=== PATIENT | female | born 1990 | race African-American/Black ===

== ENCOUNTER 2020-06-16 19:01 | Inpatient (IN) | payer OTHER ==
[2020-06-16] MEDS ORDERED: MISOPROSTOL 0.2 MG TABLET ONE (19:13)
[2020-06-16] MEDS ORDERED: LIDOCAINE 1% INJ-PF (10 MG/ML) 30 ML SDV ONE (19:13)
[2020-06-16] MEDS ORDERED: OXYTOCIN 10 UNIT/ML VIAL ONE (19:13)
[2020-06-16] MEDS ORDERED: OXYTOCIN/0.9 % SODIUM CHLORIDE 30 UNIT/500 ML RTUINJ ONE (19:13)
[2020-06-16] MEDS ORDERED: RINGERS SOLUTION,LACTATED 1,000 ML IV PRN (19:14)
--- NOTE | 2020-06-16 19:28 | Admission Physical ---
Datetime Report Generated by CPN: 06/16/2020 19:28 CURRENT ADMISSION Chief Complaint: Uterine Contractions Chief Complaint Other: Contractions since yesterday getting closer and more painful Admit Impression : Term, Intrauterine ; Active Labor Admit Plan: Admit to Unit; Initiate Labor Protocol OBSTETRICAL HISTORY EDC: 06/26/2020 00:00 : 3 Para: 1 Term: 1 : 0 IAB: 0 Ectopic: 0 Livin Cesareans: 0 VBACs: 0 Multiple Births: 0 PHYSICAL EXAM General: Normal HEENT: Normal Neurologic: Normal Thyroid: Normal Heart: Normal Lungs: Normal Breast: Normal Back: Normal Abdomen: Normal Genitourinary Exam: Normal Extremities: Normal DTRs: Normal Pelvic Type: Adequate Vital Signs: Reviewed; Within Normal Limits VAGINAL EXAM Dilatation: 9 Effacement: 100 Station: 0 Contraction Comments: every 3 minutes regularly MEMBRANES Membranes: Intact FETUS A EGA: 38.4 Monitoring: External US FHR- Baseline: 150 Variability: Moderate 6-25bpm Accelerations: 15X15 Decelerations: None FHR Category: Category I Presentation: Vertex Admit Comment: at 38.4 wks EGA in active labor -Admit to LDR -NPO and IVFs: LR one liter bolus then 125 cc/hr -GBS negative -Labs pending -Hx one prior -ANtiicpate -desires natural delivery INFORMED CONSENT Informed Consent Obtained: Vaginal Delivery; Risks, Benefits and Alternatives Discussed Signature: with User ID: [email or web address] : with User ID: [email or web address]
[2020-06-16 19:43] LABS: ABSOLUTE LYMPHOCYTES (AUTO) 1.4 10^3/uL (0.5-4.7); ABSOLUTE MONOCYTES (AUTO) 0.8 10^3/uL (0.1-1.4); ABSOLUTE NEUT (AUTO) 4.5 10^3/uL (1.7-8.2); BASOPHILS % (AUTO) 0.6 % (0-2); EOSINOPHILS % (AUTO) 0.5 % (0-6); HEMATOCRIT 39.3 % (36.0-47.0); HEMOGLOBIN 12.7 g/dL (12.0-15.5); LYMPHOCYTES % (AUTO) 20.3 % (13-45); MEAN CORPUSCULAR HEMOGLOBIN 23.6 pg (27.0-33.4); MEAN CORPUSCULAR HGB CONC 32.3 g/dL (32.0-36.0); MEAN CORPUSCULAR VOLUME 73 fl (80-97); MONOCYTES % (AUTO) 12.1 % (3-13); PLATELET COUNT 185 10^3/uL (150-450); RED BLOOD COUNT 5.39 10^6/uL (3.72-5.28); RED CELL DISTRIBUTION WIDTH 15.6 % (11.5-14.0); SEGMENTED NEUTROPHILS % (AUTO) 66.5 % (42-78); TOTAL CELLS COUNTED % (AUTO) 100 %; WHITE BLOOD COUNT 6.7 10^3/uL (4.0-10.5)
[2020-06-16] MEDS ORDERED: IBUPROFEN 800 MG TABLET ONE (20:00)
[2020-06-16] MEDS ORDERED: PROMETHAZINE HCL 25 MG SUPP.RECT PR PRN (20:04)
[2020-06-16] MEDS ORDERED: MAGNESIUM HYDROXIDE SUSP 30 ML UDCUP PO PRN (20:04)
[2020-06-16] MEDS ORDERED: PSEUDOEPHEDRINE HCL 30 MG TABLET PO PRN (20:04)
[2020-06-16] MEDS ORDERED: ZOLPIDEM TARTRATE 5 MG TABLET PO PRN (20:04)
[2020-06-16] MEDS ORDERED: PROMETHAZINE HCL INJ 25 MG/1 ML VIAL IV PRN (20:04)
[2020-06-16] MEDS ORDERED: DIBUCAINE 1% OINTMENT 28 GM TP PRN (20:04)
[2020-06-16] MEDS ORDERED: PROMETHAZINE HCL 25 MG TABLET PO PRN (20:04)
[2020-06-16] MEDS ORDERED: ACETAMINOPHEN WITH CODEINE #3 TABLET PO PRN ×2 (20:04)
[2020-06-16] MEDS ORDERED: ACETAMINOPHEN 650 MG SUPP.RECT PR PRN (20:04)
[2020-06-16] MEDS ORDERED: MEASLES,MUMPS&RUBELLA VACC/PF 0.5 ML VIAL SUBCUT PRN (20:04)
[2020-06-16] MEDS ORDERED: DIPH/PERTUSS(ACELL)/TETANUS VAC/PF 0.5 ML SYR (>=10YO) IM PRN (20:04)
[2020-06-16] MEDS ORDERED: OXYTOCIN/0.9 % SODIUM CHLORIDE 30 UNIT/500 ML RTUINJ IV PRN (20:04)
[2020-06-16] MEDS ORDERED: GLYCERIN/WITCH HAZEL LEAF 1 EACH MED..WIPE TP PRN (20:04)
[2020-06-16] MEDS ORDERED: NA PHOS,M-B/NA PHOS,DI-BA (ADULT) 133 ML ENEMA PR PRN (20:04)
[2020-06-16] MEDS ORDERED: DIPHENHYDRAMINE HCL 25 MG CAPSULE PO PRN (20:04)
[2020-06-16] MEDS ORDERED: BENZOCAINE/MENTHOL AEROSOL SPRAY 56 ML TOP PRN (20:04)
--- NOTE | 2020-06-16 20:30 | Delivery Summary ---
Del Sum A-C Datetime Report Generated by CPN: 06/16/2020 20:29 DELIVERY PERSONNEL DELIVERY PERSONNEL: [id number] Delivery Doctor:: Mee Myers MD Labor and Delivery Nurse:: Ashia Fosetr RN Nursery Nurse:: Amy Lugo RN Ladle Repairer/REGENERATION OPERATOR: Elida ST Guerrero Ladle Repairer/REGENERATION OPERATOR: Annabelletabitha Mike, BARN MANAGER MATERNAL INFORMATION Delivery Anesthesia: None Medications After Delivery: Pitocin 30 Units in 500ml NS/D5W Delivery QBL: 100 Maternal Complications: None Provider Comments: Called to patients room as she had pressure and urge to push. Bulging baf in vaginal vault ruptured and large amount of clear fluid noted. Pt pushed through a few contractions and delivered viable male infant. Vigorous at delivery and cord clamping delayed for 30 seconds. Placenta spontaneously delivered intact. FUndus firm. Both Mother and stable. LABOR SUMMARY EDC: 06/26/2020 00:00 No. Babies in Womb: 1 Attempted: No Labor Anesthesia: None LABOR INFORMATION Reason for Induction: Not Applicable Onset of Labor: 06/16/2020 02:00 Complete Dilatation: 06/16/2020 19:34 Oxytocin: N/A Group B Beta Strep: negative Antibiotics # of Doses: n/a Name of Antibiotic Given: n/a Steroids Given: None Reason Steroids Not Administered: Not Applicable MEMBRANES Membranes Rupture Method: Artificial Rupture of Membranes: 06/16/2020 19:31 Length of Rupture (hr): 0.17 Amniotic Fluid Color: Clear Amniotic Fluid Amount: Moderate Amniotic Fluid Odor: Normal STAGES OF LABOR Stage 1 hr: 17 Stage 1 min: 34 Stage 2 hr: 0 Stage 2 min: 7 Stage 3 hr: 0 Stage 3 min: 2 Total Time in Labor hr: 17 Total Time in Labor min: 43 VAGINAL DELIVERY Episiotomy: None Laceration #1: Perineal Laceration Extension #1: Third Degree, IIIa (Less than 50 percent ext anal sphincter thickness torn) Laceration Repair: Yes Laceration Repair Note: Repaired with 3-0 chromic in a layered fashion beginning with superfical aspect of the rectal muscle which was repaired iwht interrupted stitch x2. Perineal body repaired and then mucosa. Good results. Lidocaine given prior to the repair Sponge Count Correct: Yes Sharps Count Correct: Yes BABY A INFORMATION Delivery Date/Time: 06/16/2020 19:41 Method of Delivery: Vaginal Born in Route : No : N/A Forceps: N/A Vacuum Extraction: N/A Shoulder Dystocia : No PRESENTATION/POSITION BABY A Presentation: Cephalic Cephalic Presentation: Vertex Vertex Position: Left Occipital Anterior Breech Presentation: N/A PLACENTA INFORMATION BABY A Placenta Delivery Time : 06/16/2020 19:43 Placenta Method of Delivery: Spontaneous Placenta Status: Delivered SCORES BABY A Heart Rate 1 min: >100 bpm Resp Effort 1 min: Good Cry Reflex Irritability 1 min: Cough or Sneeze or Pulls Away Muscle Tone 1 min: Active Motion Color 1 min: Body St[place], Extremities Blue Resuscitation Effort 1 min: Tactile Stimulation SCORE 1 MIN: 9 Heart Rate 5 min: >100 bpm Resp Effort 5 min: Good Cry Reflex Irritability 5 min: Cough or Sneeze or Pulls Away Muscle Tone 5 min: Active Motion Color 5 min: Body St[place], Extremities Blue Resuscitation Effort 5 min: Tactile Stimulation SCORE 5 MIN: 9 INFANT INFORMATION BABY A Gestational Age at Delivery: 38.4 Gestational Status: Early Term- 37- 38.6 Weeks Outcome : Liveborn Condition : Stable Sex: Male IDENTIFICATION BABY A Infant Verification Date/Time: 06/16/2020 20:23 ID Band Number: [id number] Mother's Name Verified: Yes RN Verifying Infant: Sonny Foster RN/ Rekha Wallace RN WEIGHT/LENGTH BABY A Infant Birthweight (gm): 3090 Infant Weight (lb): 6 Infant Weight (oz): 13 Length (in): 20.00 Infant Length (cm): 50.80 CORD INFORMATION BABY A No. Cord Vessels: 3 Nuchal Cord : N/A Cord Blood Taken: Yes-For Storage (Mom's Blood type +) Suction: None ASSESSMENT BABY A Complications: None Physical Findings at Delivery: Within Normal Limits Infant Respirations: Appears Normal Skin to Skin: Yes Transferred To: Remains with Mother BABY B INFORMATION : N/A SIGNATURES Signature: with User ID: [email or web address] : with User ID: [email or web address]
--- NOTE | 2020-06-16 20:30 | Birth Certificate Data ---
Cert Data Datetime Report Generated by CPN: 06/16/2020 20:29 CERTIFICATE DATA 47a. Care: Yes (06/16/2020 19:09:Amy Lugo RN) 48a. Number of Prev Live Births: 1 (06/16/2020 19:09:Ailin Askew RN) 48b. Now Livin (06/16/2020 19:09:Ailin Askew RN) 48c. Live Births Now : 0 (06/16/2020 19:09:QS system process) 48d. Date of Last Live : 06/30/2020 00:00 (06/16/2020 19:09:Ailin Askew RN) 48e. Losses: 1 (06/16/2020 19:09:Amy Lugo RN) RISK FACTORS IN THIS 49a. Diabetes: No (06/16/2020 19:09:Ashia Foster RN) 49b. Hypertension: No (06/16/2020 19:09:Ashia Foster RN) 49c. Previous Births: 0 (06/16/2020 19:09:Ailin Askew RN) 49d. Stillborns: No (06/16/2020 19:09:Ashia Foster RN) 49d. IUGR: No (06/16/2020 19:09:Ashia Foster RN) 49e. Infertility Treatment: No (06/16/2020 19:09:Ashia Foster RN) 49f. Previous Cesareans: 0 (06/16/2020 19:09:Ailin Askew RN) Infections Present/Treated 53a. Gonorrhea: No (06/16/2020 19:09:Ashia Foster RN) Results this Hospital Visit : Negative (06/16/2020 19:09:Aliin Askew RN) 53b. Syphilis: No (06/16/2020 19:09:Ashia Foster RN) 53c. Chlamydia: No (06/16/2020 19:09:Ashia Foster RN) Results this Hospital Visit: Negative (06/16/2020 19:09:Ailin Askew RN) 53d. Hepatitis B: No (06/16/2020 19:09:Ashia Foster RN) Results this Hospital Visit: Negative (06/16/2020 19:09:Ailin Askew RN) 53e. Hepatitis C: Negative (06/16/2020 19:09:Ailin Askew RN) 53h. Mother Tested for HBsAG: Yes (06/16/2020 19:09:Ailin Askew RN) 53i. Date Tested: 11/12/2019 00:00 (06/16/2020 19:09:Ailin Askew RN) 53j. Test Result: Negative (06/16/2020 19:09:Ailin Askew RN) Obstetric Procedures 54a, b, c. Obstetric Procedures: Ultrasound; NST (06/16/2020 19:09:Ashia Foster RN) Cigarette Smoking 55a. 3 Months Before Preg - Ci (06/16/2020 19:09:Ashia Foster RN) 55b. 1st Trimester of Preg- Ci (06/16/2020 19:09:Ashia Foster RN) 55c. 2nd Trimester of Preg- Ci (06/16/2020 19:09:Ashia Foster RN) 55d. 3rd Trimester of Preg- Ci (06/16/2020 19:09:Ashia Foster RN) Onset of Labor 56a. PROM >12 Hrs: 0.17 (06/16/2020 19:09:QS system process) 56b. Precipitous Labor <3 Hrs: 17 (06/16/2020 19:09:QS system process) 56c. Prolonged Labor > 20 Hrs: 17 (06/16/2020 19:09:QS system process) 57a. Induction of Labor: N/A (06/16/2020 19:09:Ashia Foster RN) 57c. Non-Vertex Presentation A: Vertex (06/16/2020 19:09:Ashia Foster RN) 57d. Steroids - Lung Mat: None (06/16/2020 19:09:Ashia Foster RN) 57d. Steroids - Lung Mat: Not Applicable (06/16/2020 19:09:Ashia Foster RN) 57f. Mat [place] or Temp >100.4: 98.2 (06/16/2020 19:09:Nelly Reece RN) 57g. Moderate/Heavy Meconium: Clear (06/16/2020 19:31:Ashia Foster RN) 57i. Epidural/Spinal Anesthesia: None (06/16/2020 19:09:Ashia Foster RN) Method of Delivery 58a. Forceps - Unsuccessful A: N/A (06/16/2020 19:09:Ashia Foster RN) 58b. Vacuum - Unsuccessful A: N/A (06/16/2020 19:09:Ashia Foster RN) 58c. Presentation at 58c. Presentation at - A : Vertex (06/16/2020 19:09:Ashia Foster RN) 58c. Presentation at - A : N/A (06/16/2020 19:09:Ashia Foster RN) 58c. Presentation at - A : Cephalic (06/16/2020 19:10:Ashia Foster RN) Final Route and Method of Del 58d. Baby A Route/Delivery: Vaginal (06/16/2020 19:41:Ashia Foster RN) 58e. Trial of Labor Attempted: No (06/16/2020 19:09:Ashia Foster RN) 58e. Trial of Labor Attempted A: N/A (06/16/2020 19:09:Ashia Foster RN) 58e. Trial of Labor Attempted B: N/A (06/16/2020 19:09:Ashia Foster RN) Maternal Morbidity 59b. 3rd or 4th Degree Lacs: Perineal (06/16/2020 19:09:Ashia Foster RN) 59b. 3rd or 4th Degree Lacs: Third Degree (06/16/2020 19:09:Ashia Foster RN) Birthweight Baby A: 3090 (06/16/2020 19:09:Ashia Foster RN) 60a. Pounds : 6 (06/16/2020 19:09:QS system process) 60b. Ounces: 13 (06/16/2020 19:09:QS system process) 61. GA at Delivery Baby A: 38.4 (06/16/2020 19:09:Ashia Foster RN) : Early Term- 37- 38.6 Weeks (06/16/2020 19:09:QS system process) 62a. 5 Minute Baby A: 9 (06/16/2020 19:09:QS system process)
[2020-06-16 22:11] LABS: BILIRUBIN,URINE NEGATIVE (NEGATIVE); GLUCOSE, URINE 50 mg/dL (NEGATIVE); KETONES,URINE 80 mg/dL (NEGATIVE); LEUKOCYTE ESTERASE,URINE NEGATIVE (NEGATIVE); NITRITE,URINE NEGATIVE (NEGATIVE); PROTEIN,URINE 100 mg/dL (NEGATIVE); URINE SPECIFIC GRAVITY 1.015; UROBILINOGEN,URINE NEGATIVE mg/dL (<2.0)
[2020-06-16 22:17] LABS: APPEARANCE,URINE TURBID; COLOR,URINE RED
[2020-06-16 22:43] LABS: URINE AMPHETAMINES SCREEN NEGATIVE; URINE BARBITURATES SCREEN NEGATIVE; URINE BENZODIAZEPINES SCREEN NEGATIVE; URINE COCAINE SCREEN NEGATIVE; URINE MARIJUANA (THC) SCREEN NEGATIVE; URINE METHADONE SCREEN NEGATIVE; URINE PHENCYCLIDINE SCREEN NEGATIVE
[2020-06-16] MEDS: FAMOTIDINE 20 MG TABLET PO SCH (23:09)
[2020-06-17] MEDS: IBUPROFEN 800 MG TABLET PO SCH ×3 (05:55→21:15)
[2020-06-17 09:11] LABS: HEMATOCRIT 36.1 % (36.0-47.0); MEAN CORPUSCULAR HEMOGLOBIN 24.2 pg (27.0-33.4); MEAN CORPUSCULAR HGB CONC 33.3 g/dL (32.0-36.0); MEAN CORPUSCULAR VOLUME 73 fl (80-97); PLATELET COUNT 167 10^3/uL (150-450); RED BLOOD COUNT 4.99 10^6/uL (3.72-5.28); RED CELL DISTRIBUTION WIDTH 15.8 % (11.5-14.0); WHITE BLOOD COUNT 9.6 10^3/uL (4.0-10.5)
--- NOTE | 2020-06-17 12:13 | PDOC PROGRESS REPORT ---
Subjective-OB Progress Note for:: 06/17/20 - PP Day #1, doing well, breast feeding , UOB, no complaints. Hx 3rd degree laceration w/ this delivery Physical Exam (OB) Vital Signs: Temp Pulse Resp BP Pulse Ox 98.4 F 70 16 133/64 H 99 06/16/20 22:02 06/16/20 22:02 06/16/20 22:02 06/16/20 22:02 06/16/20 22:02 - General General Appearance: Appears well, Alert - Maternal Morbidity 59. Maternal Morbidity (serious complications experinced by the mother associated with labor and delivery: None of the above - Lochia Lochia Amount: Small 10-25 ml Lochia Color: Rubra/Red - Abdomen Description: Soft, Round Hernia Present: No Fundal Description: Firm Fundal Height: u/u - u/2 - Respiratory Respiratory Status: No respiratory distress - Abdominal Distension: No distension Tenderness: Nontender - Genitourinary Genitourinary Note: voiding - Extremities Upper extremity: Normal inspection Lower extremities: Normal inspection - Neurological Cognition: Normal Orientation: AAOx4 - Psychological Associated symptoms: Normal affect, Normal mood - Skin Skin Temperature: Warm Skin Moisture: Dry Objective-Diagnostic Laboratory: 06/17/20 08:37 06/16/20 06/16/20 06/16/20 19:27 19:27 21:30 WBC 6.7 RBC 5.39 H Hgb 12.7 Hct 39.3 MCV 73 L MCH 23.6 L MCHC 32.3 RDW 15.6 H Plt Count 185 Seg Neutrophils % 66.5 Urine Color RED Urine Appearance TURBID Urine pH 5.0 Ur Specific [place] 1.015 Urine Protein 100 H Urine Glucose (UA) 50 H Urine Ketones 80 H Urine Blood MODERATE H Urine Nitrite NEGATIVE Ur Leukocyte Esterase NEGATIVE Urine WBC (Auto) 35 Urine RBC (Auto) >182 Blood Type B POSITIVE Antibody Screen NEGATIVE 06/17/20 08:37 WBC 9.6 RBC 4.99 Hgb 12.0 Hct 36.1 MCV 73 L MCH 24.2 L MCHC 33.3 RDW 15.8 H Plt Count 167 Seg Neutrophils % Urine Color Urine Appearance Urine pH Ur Specific [place] Urine Protein Urine Glucose (UA) Urine Ketones Urine Blood Urine Nitrite Ur Leukocyte Esterase Urine WBC (Auto) Urine RBC (Auto) Blood Type Antibody Screen Assessment and Plan(PN) - Assessment and Plan (1) (normal spontaneous vaginal delivery) Is this a current diagnosis for this admission?: Yes (2) Normal course Is this a current diagnosis for this admission?: Yes Plan:: Routine PP orders, ambulation encouraged - Time Spent with Patient Time with patient: Less than 15 minutes Medications reviewed and adjusted accordingly: Yes - Disposition Anticipated Discharge Disposition: Home, Self Care Anticipated Discharge Timeframe: within 24 hours
[2020-06-17] MEDS: SENNOSIDES/DOCUSATE 8.6-50 MG 1 EACH TABLET PO SCH (12:24)
[2020-06-17] MEDS: FERROUS SULFATE 325 MG TABLET PO SCH ×2 (12:24→17:43)
[2020-06-17] MEDS: DOCUSATE SODIUM 100 MG CAPSULE PO SCH ×2 (12:25→17:43)
[2020-06-17] MEDS: PRENATAL VITAMIN W DHA CAPSULE PO SCH (12:25)
[2020-06-17] MEDS: FAMOTIDINE 20 MG TABLET PO SCH ×2 (12:25→21:15)
[2020-06-18] MEDS: IBUPROFEN 800 MG TABLET PO SCH ×2 (05:48→15:11)
[2020-06-18 08:11] VITALS: BP 130/75
[2020-06-18] MEDS: FERROUS SULFATE 325 MG TABLET PO SCH (09:36)
[2020-06-18] MEDS: PRENATAL VITAMIN W DHA CAPSULE PO SCH (09:37)
[2020-06-18] MEDS: DOCUSATE SODIUM 100 MG CAPSULE PO SCH (09:37)
[2020-06-18] MEDS: SENNOSIDES/DOCUSATE 8.6-50 MG 1 EACH TABLET PO SCH (09:37)
[2020-06-18] MEDS: FAMOTIDINE 20 MG TABLET PO SCH (09:37)
--- NOTE | 2020-06-18 12:16 | PDOC DISCHARGE SUMMARY ---
Impression - Admit/DC Date/PCP Admission Date/Primary Care Provider: 06/16/20 19:17 Discharge Date: 06/18/20 - PP Day #2, doing well, no complaints. B+, - Discharge Diagnosis (1) (normal spontaneous vaginal delivery) Is this a current diagnosis for this admission?: Yes (2) Normal course Is this a current diagnosis for this admission?: Yes (3) Third degree laceration of perineum during delivery, Is this a current diagnosis for this admission?: Yes - Additional Information Resuscitation Status: Full Code Discharge Diet: Regular Discharge Activity: Activity As Tolerated, No Lifting Over 10 Pounds, Pelvic Rest Prescriptions: Ibuprofen [Motrin 800 mg Tablet] 800 mg PO Q8 #60 tablet Home Medications: Ibuprofen [Motrin 800 mg Tablet] 800 mg PO Q8 #60 tablet 06/18/20 HPI Reason(s) for Admission: Induction of Labor Procedures: Ultrasound Intrapartum Procedure(s): Spontaneous Vaginal Delivery Laceration-Degree: 3rd Hospital Course 59. Maternal Morbidity (serious complications experinced by the mother associated with labor and delivery: Third or fourth degree perineal laceration Results Laboratory Results: WBC 9.6 10^3/uL (4.0-10.5) 06/17/20 08:37 RBC 4.99 10^6/uL (3.72-5.28) 06/17/20 08:37 Hgb 12.0 g/dL (12.0-15.5) 06/17/20 08:37 Hct 36.1 % (36.0-47.0) 06/17/20 08:37 MCV 73 fl (80-97) L 06/17/20 08:37 MCH 24.2 pg (27.0-33.4) L 06/17/20 08:37 MCHC 33.3 g/dL (32.0-36.0) 06/17/20 08:37 RDW 15.8 % (11.5-14.0) H 06/17/20 08:37 Plt Count 167 10^3/uL (150-450) 06/17/20 08:37 Lymph % (Auto) 20.3 % (13-45) 06/16/20 19:27 [place] % (Auto) 12.1 % (3-13) 09/03/20 19:27 Eos % (Auto) 0.5 % (0-6) 06/16/20 19: Baso % (Auto) 0.6 % (0-2) 06/16/20 19: Absolute Neuts (auto) 4.5 10^3/uL (1.7-8.2) 06/16/20 19: Absolute Lymphs (auto) 1.4 10^3/uL (0.5-4.7) 06/16/20 19: Absolute Monos (auto) 0.8 10^3/uL (0.1-1.4) 06/16/20 19: Absolute Eos (auto) 0.0 10^3/uL (0.0-0.6) 06/16/20 19: Absolute Basos (auto) 0.0 10^3/uL (0.0-0.2) 06/16/20 19: Seg Neutrophils % 66.5 % (42-78) 06/16/20 19: Urine Color RED 06/16/20 21:30 Urine Appearance TURBID 06/16/20 21:30 Urine pH 5.0 (5.0-9.0) 06/16/20 21:30 Ur Specific [place] 1.015 06/16/20 21:30 Urine Protein 100 mg/dL (NEGATIVE) H 06/16/20 21:30 Urine Glucose (UA) 50 mg/dL (NEGATIVE) H 06/16/20 21:30 Urine Ketones 80 mg/dL (NEGATIVE) H 06/16/20 21:30 Urine Blood MODERATE (NEGATIVE) H 06/16/20 21:30 Urine Nitrite NEGATIVE (NEGATIVE) 06/16/20 21:30 Urine Bilirubin NEGATIVE (NEGATIVE) 06/16/20 21:30 Urine Urobilinogen NEGATIVE mg/dL (<2.0) 06/16/20 21:30 Ur Leukocyte Esterase NEGATIVE (NEGATIVE) 06/16/20 21:30 Urine WBC (Auto) 35 /HPF 06/16/20 21:30 Urine RBC (Auto) >182 /HPF 06/16/20 21:30 Urine Ascorbic Acid NEGATIVE (NEGATIVE) 06/16/20 21:30 Urine Opiates Screen NEGATIVE 06/16/20 21:30 Urine Methadone Screen NEGATIVE 06/16/20 21:30 Ur Barbiturates Screen NEGATIVE 06/16/20 21:30 Ur Phencyclidine Scrn NEGATIVE 06/16/20 21:30 Ur Amphetamines Screen NEGATIVE 06/16/20 21:30 U Benzodiazepines Scrn NEGATIVE 06/16/20 21:30 Urine Cocaine Screen NEGATIVE 06/16/20 21:30 U Marijuana (THC) Screen NEGATIVE 06/16/20 21:30 RPR NONREACTIVE (NONREACTIVE) 06/16/20 19:27 Blood Type B POSITIVE 06/16/20 19:27 Antibody Screen NEGATIVE 06/16/20 19:27 Plan Health Concerns: stool softner, increase fiber Plan of Treatment: d/c home f/up with [facility] in one week for laceration check, third degree Time Spent: Less than 30 Minutes
== END 2020-06-18 14:46 | disposition home or self-care (01) | DRG 768 ==
LOC: LC 19:01 → LR 19:17 → 2S 21:52
PROVIDERS: ADMIT Obstetrics & Gynecology; ATTEND Obstetrics & Gynecology
PROC: 10E0XZZ Delivery of Products of Conception, External Approach (ICD-10-PCS; principal; 2020-06-16)
PROC: 0DQR0ZZ Repair Anal Sphincter, Open Approach (ICD-10-PCS; 2020-06-16)
DX: O70.21 Third degree perineal laceration during delivery, IIIa (principal); Z37.0 Single live birth; Z3A.38 38 weeks gestation of pregnancy
CPT/HCPCS: 36415; 80307; 81001; 85025; 85027; 86592; 86850; 86900; 86901; J2590; J3490